=== PATIENT | female | born 1985 | race Caucasian/White ===

== ENCOUNTER 2016-12-14 22:03 | Emergency (ER) | payer SELFPAY ==
[2016-12-14 22:33] VITALS: BP 108/71; PULSE 71; RESP 20; TEMP 97.6; O2SAT 98
[2016-12-14] MEDS ORDERED: Fluorescein 1 mg Ophthalmic Strip ONE (23:14)
[2016-12-14] MEDS ORDERED: Tetracaine 0.5% Ophth (OR ONLY) ONE (23:14)
--- NOTE | 2016-12-15 00:22 | C.PDOC ---
History Of Present Illness 31 year old female presents to the ED with complaints of pain to the right eye beginning a couple of hours prior to arrival. Patient states while she was sleeping it felt as if something entered her eye. She denies any injury to the eye or vision changes. Time Seen by Provider: 12/14/16 23:03 Chief Complaint (Nursing): Eye Problem History Per: Patient History/Exam Limitations: no limitations Onset/Duration Of Symptoms: Hrs Current Symptoms Are (Timing): Still Present Injury To Eye?: No Quality: "Pain" Associated Symptoms: Pain, Itching. denies: Decreased Vision, Discharge From Eye Recent travel outside of the [place]: No Past Medical History Reviewed: Historical Data, Nursing Documentation, Vital Signs Vital Signs: Last Vital Signs Temp 97.6 F 12/14/16 22:29 Pulse 71 12/14/16 22:29 Resp 20 12/15/16 00:29 BP 108/71 12/14/16 22:29 Pulse Ox 98 12/15/16 07:05 Family History: States: No Known Family Hx - Social History Hx Alcohol Use: No Hx Substance Use: No Review Of Systems Constitutional: Negative for: Fever, Chills, Sweats Eyes: Positive for: Redness Cardiovascular: Negative for: Chest Pain, Palpitations Respiratory: Negative for: Cough, Shortness of Breath Gastrointestinal: Negative for: Nausea, Vomiting, Abdominal Pain, Diarrhea Physical Exam - Physical Exam Appears: Non-toxic, No Acute Distress Skin: Warm, Dry Head: Atraumatic Eye(s): bilateral: PERRL, EOMI, Other (Visual acuity 20/20 bilaterally. no foregin body found but two small corneal abrasions perpendicular around 8 o' clock area. Slight injected conjunctiva to right eye.) Oral Mucosa: Moist Neck: Supple Cardiovascular: Rhythm Regular Neurological/Psych: Oriented x3 ED Course And Treatment O2 Sat by Pulse Oximetry: 98 (room air ) Disposition Counseled Patient/Family Regarding: Diagnosis, Need For Followup, Rx Given - Disposition Referrals: Swapnil Espinosa MD [Staff Provider] - Disposition: HOME/ ROUTINE Disposition Time: 00:20 Condition: STABLE Additional Instructions: Apply drops as prescribed Take motrin for pain Return to ER if worse Prescriptions: Tobramycin 0.3% [Tobrex 0.3% Opth Soln] 1 drop OD TID #1 bottle Instructions: Corneal Abrasion (ED) - Clinical Impression Clinical Impression: Corneal abrasion, right - Scribe Statement The provider has reviewed the documentation as recorded by the Scribe Aaliyah Baldwin All medical record entries made by the Timiibcourtney were at my direction and personally dictated by me. I have reviewed the chart and agree that the record accurately reflects my personal performance of the history, physical exam, medical decision making, and the department course for this patient. I have also personally directed, reviewed, and agree with the discharge instructions and disposition.
== END 2016-12-15 00:29 | disposition home or self-care (01) ==
LOC: EDBD → C.ER 22:03
DX: S05.01XA Injury of conjunctiva and corneal abrasion without foreign body, right eye, initial encounter (principal); X58.XXXA Exposure to other specified factors, initial encounter; Y93.89 Activity, other specified; Y92.89 Other specified places as the place of occurrence of the external cause

== ENCOUNTER 2017-02-03 17:19 | Emergency (ER) | payer SELFPAY ==
[2017-02-03] MEDS ORDERED: Sodium Chloride 0.9% 1,000 ML IV ONE (17:50)
[2017-02-03 18:13] LABS: BASO # 0.1 K/uL (0.0-0.2); BASO % 0.8 % (0.0-2.0); EOS # 0.2 K/uL (0.0-0.7); EOS % 2.2 % (0.0-4.0); HEMOGLOBIN 12.4 g/dL (11.0-16.0); LYMPH # 2.7 K/uL (1.0-4.3); LYMPH % 27.9 % (20.0-40.0); MEAN CELL VOLUME 87.6 fL (81.0-99.0); MEAN CORPUSCULAR HEMOGLOBIN 28.8 pg (27.0-31.0); MEAN CORPUSCULAR HGB CONC 32.8 g/dL (33.0-37.0); MEAN PLATELET VOLUME 8.3 fL (7.2-11.7); MONO # 0.7 K/uL (0.0-0.8); MONO % 6.7 % (0.0-10.0); NEUT # 6.1 K/uL (1.8-7.0); NEUT % 62.4 % (50.0-75.0); NRBC % 0.1 % (0.0-2.0); RBC 4.32 Mil/uL (3.80-5.20); RED CELL DISTRIBUTION WIDTH 13.4 % (11.5-14.5); WHITE BLOOD COUNT 9.8 K/uL (4.8-10.8)
[2017-02-03 18:15] LABS: HCG,QUALITATIVE URINE NEGATIVE (NEGATIVE); SQUAMOUS EPITHIAL 2 /hpf (0-5); URINE BACTERIA OCC (<OCC); URINE BILIRUBIN NEGATIVE (NEGATIVE); URINE BLOOD 3+ (NEGATIVE); URINE CLARITY Hazy (Clear); URINE COLOR Yellow (YELLOW); URINE GLUCOSE (UA) NORMAL (Normal); URINE LEUKOCYTE ESTERASE 2+ Leu/uL (Negative); URINE NITRATE NEGATIVE (NEGATIVE); URINE PROTEIN 2+ mg/dL (NEGATIVE); URINE UROBILINOGEN NORMAL mg/dL (0.2-1.0)
[2017-02-03 18:22] LABS: ALBUMIN 3.9 g/dL (3.5-5.0)
[2017-02-03 18:24] LABS: GFR AFRICAN-AMERICAN > 60; GFR NON-AFRICAN AMERICAN > 60
[2017-02-03 18:25] LABS: ALB/GLOB RATIO 1.2 (1.0-2.1); ALT/SGPT 26 U/L (9-52); AST/SGOT 15 U/L (14-36); BLOOD UREA NITROGEN 10 mg/dL (7-17); CALCIUM 9.3 mg/dl (8.6-10.4); LIPASE 74 U/L (23-300)
--- NOTE | 2017-02-03 18:44 | C.PDOC ---
History Of Present Illness <Nydia Babcock - Last Filed: 02/03/17 18:57> <Tima Moody - Last Filed: 02/03/17 20:22> Patient is a 31 y/o female, whose past medical history includes kidney stones, presents to the emergency department for evaluation of left sided back pain radiating to the abdomen since this morning. Pt reports associated nausea, and pelvic pain. Patient admits to urinary frequency, and dysuria. 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 Otherwise, denies any vomiting, fever, chills, hematuria, or any other associated symptoms at this time. (+) vaginal bleeding- notes she has been spotting for a couple of weeks since she started taking control. (Nydia Babcock) History Per: Patient History/Exam Limitations: no limitations Onset/Duration Of Symptoms: Hrs Current Symptoms Are (Timing): Still Present Radiation Of Pain To:: Back Quality Of Discomfort: "Pain" Associated Symptoms: Nausea, Back Pain, Urinary Symptoms. denies: Fever, Chills , Vomiting, Diarrhea, Loss Of Appetite, Chest Pain, Constipation Exacerbating Factors: None Alleviating Factors: None Recent travel outside of the [place]: No Additional History Per: Patient Abnormal Vaginal Bleeding: No <Nydia Babcock - Last Filed: 02/03/17 18:57> <Tima Moody - Last Filed: 02/03/17 20:22> Time Seen by Provider: 02/03/17 17:50 Chief Complaint (Nursing): Abdominal Pain Past Medical History Reviewed: Historical Data, Nursing Documentation, Vital Signs Family History: States: Unknown Family Hx - Social History Hx Alcohol Use: No Hx Substance Use: No - Immunization History Hx Tetanus Toxoid Vaccination: No Hx Influenza Vaccination: No Hx Pneumococcal Vaccination: No <Nydia Babcock - Last Filed: 02/03/17 18:57> Review Of Systems Except As Marked, All Systems Reviewed And Found Negative. Constitutional: Negative for: Fever, Chills Gastrointestinal: Positive for: Nausea, Abdominal Pain. Negative for: Vomiting , Diarrhea, Constipation Genitourinary: Positive for: Dysuria, Frequency, Pelvic Pain. Negative for: Incontinence, Hematuria, Vaginal Discharge, Vaginal Bleeding Musculoskeletal: Positive for: Back Pain Skin: Negative for: Rash Neurological: Negative for: Weakness, Numbness <Nydia Babcock - Last Filed: 02/03/17 18:57> Physical Exam - Physical Exam Appears: Non-toxic, No Acute Distress Skin: Normal Color, Warm, Dry Head: Atraumatic, Normacephalic Eye(s): bilateral: Normal Inspection, EOMI Nose: Normal Oral Mucosa: Moist Neck: Normal ROM, Supple Chest: Symmetrical Cardiovascular: Rhythm Regular, No Murmur Respiratory: Normal Breath Sounds, No Rales, No Rhonchi, No Wheezing Gastrointestinal/Abdominal: Normal Exam, Soft, No Tenderness, No Guarding, No Rebound Back: No CVA Tenderness, No Vertebral Tenderness, No Paraspinal Tenderness Extremity: Normal ROM Neurological/Psych: Oriented x3, Normal Speech, Normal Cognition <Nydia Babcock - Last Filed: 02/03/17 18:57> ED Course And Treatment - Laboratory Results Result Diagrams: 02/03/17 18:05 02/03/17 18:05 O2 Sat by Pulse Oximetry: 98 (on RA) Pulse Ox Interpretation: Normal Progress Note: Blood work, urinalysis ordered and reviewed. Patient was given IV fluids. Abd and pelvis CT ordered. On reassessment, patient is resting comfortably, no acute distress. Abdomen remains soft and non-tender. Patient will be signed out to Dr. Moody, pending re-eval, and CT scan results. <Nydia Babcock - Last Filed: 02/03/17 18:57> - Laboratory Results Result Diagrams: 02/03/17 18:05 02/03/17 18:05 <Tima Moody - Last Filed: 02/03/17 20:22> Disposition - Disposition Disposition Time: 18:58 <Nydia Babcock - Last Filed: 02/03/17 18:57> Counseled Patient/Family Regarding: Studies Performed, Diagnosis - Disposition Disposition Time: 20:21 - POA Present On Arrival: None <Tima Moody - Last Filed: 02/03/17 20:22> - Disposition Referrals: [facility] [Outside] Disposition: HOME/ ROUTINE Condition: STABLE Instructions: Kidney Stones (GEN) - Clinical Impression Clinical Impression: UTI (urinary tract infection), Abdominal pain, Kidney stone on right side - PA / TAPPET ADJUSTER / Resident Statement MD/DO has reviewed & agrees with the documentation as recorded. - Scribe Statement The provider has reviewed the documentation as recorded by the Scribe <Nydia Babcock - Last Filed: 02/03/17 18:57> <Tima Moody - Last Filed: 02/03/17 20:22> - Scribe Statement Jesus Paul All medical record entries made by the Scribe were at my direction and personally dictated by me. I have reviewed the chart and agree that the record accurately reflects my personal performance of the history, physical exam, medical decision making, and the department course for this patient. I have also personally directed, reviewed, and agree with the discharge instructions and disposition. (Nydia Babcock) Physician Patient Turnover Patient Signed Over To: Tima Moody Handoff Comments: Pending Abd & pelvis CT scan, and re-evaluation. <Nydia Babcock - Last Filed: 02/03/17 18:57>
[2017-02-03] MEDS ORDERED: Ciprofloxacin 400mg/200ml D5W 400 MG/200 ML BAG IVPB STA (20:11)
[2017-02-03] MEDS ORDERED: Ciprofloxacin 400mg/200ml D5W 400 MG/200 ML BAG IVPB ONE (20:18)
[2017-02-03 20:52] VITALS: BP 115/75; PULSE 58; RESP 18; TEMP 97.7; O2SAT 100
--- NOTE | 2017-02-04 08:15 | CT ---
PROCEDURE: CT Abdomen and Pelvis without Oral or IV contrast. HISTORY: pain COMPARISON: None available. TECHNIQUE: Contiguous axial images of the abdomen and pelvis. No oral or IV contrast administered. Coronal and Sagittal reformats generated. Radiation dose: Total exam DLP = 835.15 mGy-cm. This CT exam was performed using one or more of the following dose reduction techniques: Automated exposure control, adjustment of the mA and/or kV according to patient size, and/or use of iterative reconstruction technique. FINDINGS: There is limited evaluation of the solid organs without the administration of IV contrast. LOWER THORAX: No visible consolidation, pleural effusion, or pneumothorax. LIVER: Unremarkable unenhanced appearance. GALLBLADDER AND BILE DUCTS: Unremarkable unenhanced appearance. PANCREAS: Unremarkable unenhanced appearance. SPLEEN: Unremarkable unenhanced appearance. ADRENALS: Unremarkable unenhanced appearance. KIDNEYS AND URETERS: Right-sided ureteral stent. Moderate right-sided hydronephrosis and hydroureter extending to the right UVJ. Approximately 6 mm nonobstructing calculus, upper/mid pole right kidney. No hydronephrosis or obstructing calculus on the left. BLADDER: The urinary bladder appears unremarkable. REPRODUCTIVE: Uterus is present. APPENDIX: The appendix appears within normal limits of caliber. No secondary signs of acute appendicitis. BOWEL: The stomach is nondistended. Lack of oral contrast limits evaluation for bowel pathology. The bowel loops appear within normal limits of caliber without evidence of intestinal obstruction. PERITONEUM: No significant free fluid. No definite free air. LYMPH NODES: No bulky lymphadenopathy identified. VASCULATURE: No aortic aneurysm. BONES: No acute osseous abnormality is detected. OTHER FINDINGS: None. IMPRESSION: Right-sided ureteral stent. Moderate right-sided hydronephrosis and hydroureter extending to the right UVJ. Approximately 6 mm nonobstructing calculus, upper/mid pole right kidney. Additional findings as above. Preliminary impression was provided by virtual radi[employer].
== END 2017-02-03 21:00 | disposition home or self-care (01) ==
LOC: C.ER 17:19
DX: N39.0 Urinary tract infection, site not specified (principal); N13.2 Hydronephrosis with renal and ureteral calculous obstruction
CPT/HCPCS: 74176; 80053; 81001; 83690; 84703; 85025; 87086; 96361; 96365; 99285; J0744; J7040

== ENCOUNTER 2017-03-19 13:41 | Emergency (ER) | payer SELFPAY ==
[2017-03-19 14:32] LABS: URINE BILIRUBIN NEGATIVE (NEGATIVE); URINE BLOOD NEGATIVE (NEGATIVE); URINE COLOR Colorless (YELLOW); URINE GLUCOSE (UA) NORMAL (Normal); URINE KETONE NEGATIVE (NEGATIVE); URINE LEUKOCYTE ESTERASE NEG Leu/uL (Negative); URINE PROTEIN NEGATIVE (NEGATIVE); URINE UROBILINOGEN NORMAL mg/dL (0.2-1.0); WBC URINE < 1 /hpf (0-5)
[2017-03-19] MEDS ORDERED: Sodium Chloride 0.9% 1,000 ML IV ONE (14:43)
--- NOTE | 2017-03-19 14:46 | C.PDOC ---
History Of Present Illness 31 y/o female, whose past medical history includes kidney stones, presents to the emergency department for evaluation of left sided back pain radiating to the abdomen since this morning. Pt reports associated nausea, and pelvic pain. Patient admits to urinary frequency, and dysuria. 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 Otherwise, denies fever, chills, throat pain, CP, SOB, dyspnea, diaphoresis, palpitation, vomiting, hematuria, or any other associated symptoms at this time. Ambulate to Ed for evaluation, appears asymptomatic currently, took pain medication CHAIR MECHANIC Time Seen by Provider: 03/19/17 13:58 Chief Complaint (Nursing): Female Genitourinary History Per: Patient Onset/Duration Of Symptoms: Intermittent Episodes Current Symptoms Are (Timing): Still Present Past Medical History Reviewed: Historical Data, Nursing Documentation, Vital Signs Vital Signs: Last Vital Signs Temp 98.9 F 03/19/17 17:04 Pulse 46 L 03/19/17 17:04 Resp 18 03/19/17 17:04 BP 98/66 L 03/19/17 17:04 Pulse Ox 96 03/19/17 17:22 - Medical History PMH: Kidney Stones Surgical History: No Surg Hx Family History: States: Unknown Family Hx - Social History Hx Alcohol Use: No Hx Substance Use: No - Immunization History Hx Tetanus Toxoid Vaccination: No Hx Influenza Vaccination: No Hx Pneumococcal Vaccination: No Review Of Systems Except As Marked, All Systems Reviewed And Found Negative. Constitutional: Negative for: Fever, Chills ENT: Negative for: Ear Discharge, Nose Discharge, Throat Pain Cardiovascular: Negative for: Chest Pain, Palpitations Respiratory: Negative for: Cough, Shortness of Breath, Wheezing Gastrointestinal: Positive for: Abdominal Pain. Negative for: Nausea, Vomiting , Diarrhea, Constipation, Melena, Hematochezia, Hematemesis Genitourinary: Positive for: Dysuria, Pelvic Pain. Negative for: Hematuria, Vaginal Discharge, Vaginal Bleeding Musculoskeletal: Positive for: Back Pain. Negative for: Neck Pain Skin: Negative for: Rash Neurological: Negative for: Weakness, Numbness, Seizures, Altered Mental Status , Headache, Dizziness Physical Exam - Physical Exam Appears: Well, Non-toxic, No Acute Distress Skin: Normal Color, Warm, Dry Eye(s): bilateral: PERRL Nose: No Discharge Oral Mucosa: Moist, No Drooling Throat: No Erythema, No Exudate, No Drooling Neck: Normal ROM, Supple Cardiovascular: Rhythm Regular Respiratory: No Decreased Breath Sounds, No Accessory Muscle Use, No Rales, No Rhonchi, No Stridor, No Wheezing Gastrointestinal/Abdominal: Soft, Tenderness (mild RLQ tenderness), No Distention, No Guarding, No Rebound Back: No CVA Tenderness Extremity: No Tenderness, No Pedal Edema, No Deformity Neurological/Psych: Oriented x3, Normal Speech, Normal Motor, Normal Sensation, Normal Reflexes ED Course And Treatment - Laboratory Results Result Diagrams: 03/19/17 15:02 03/19/17 15:02 Lab Interpretation: Normal O2 Sat by Pulse Oximetry: 96 Pulse Ox Interpretation: Normal - CT Scan/US CT abd/pelvis Other Rad Studies (CT/US): Radiology Report Reviewed CT/US Interpretation: Accession No. : [id number]. Patient Name / ID : CRISTIAN SPEAR / [id number]. Exam Date : 03/19/2017 16:35:48 ( Approved ). Study Comment : Sex / Age : F / 39Y. Creator : Grisel Agudelo MD. Dictator : Strategic Planning Manager : Parts Cataloger : Grisel Agudelo MD. Approver2 : Report Date : 03/19/2017 17:06:21. My Comment : . PROCEDURE: CT Abdomen and Pelvis with contrast. HISTORY: RLQ pain. COMPARISON: CT abdomen and pelvis without contrast performed 02/03/17. TECHNIQUE: Contrast dose: 100 cc Visipaque 320. Radiation dose: Total exam DLP = 832.65 mGy-cm. This CT exam was performed using one or more of the following dose reduction techniques: Automated exposure control, adjustment of the mA and/or kV according to patient size, and/or use of iterative reconstruction technique. FINDINGS: LOWER THORAX : No visible consolidation, pleural effusion, or pneumothorax. 6 x 3 mm subpleural left lower lobe pleural based nodule. LIVER: Unremarkable. GALLBLADDER AND BILE DUCTS: Unremarkable. PANCREAS: Unremarkable. SPLEEN: Unremarkable. ADRENALS: Unremarkable. KIDNEYS AND URETERS: The kidneys enhance symmetrically. No hydronephrosis or obstructing calculus identified. 4 mm right lower pole renal calculus. Right ureteral stent. VASCULATURE: No aortic aneurysm. BOWEL: Stomach is nondistended. Lack of oral contrast limits evaluation for bowel pathology. Bowel loops appear within normal limits of caliber without evidence of obstruction. APPENDIX: The appendix appears within normal limits of caliber. No secondary signs of acute appendicitis. PERITONEUM: No significant free fluid. No definite free air. LYMPH NODES: No bulky adenopathy identified. BLADDER: Unremarkable. REPRODUCTIVE: Uterus is present. BONES: No acute osseous abnormality is detected. OTHER FINDINGS: None. IMPRESSION: 6 x 3 mm subpleural left lower lobe pleural based nodule. Guidelines by the Fleischner society (radiology 2005; 237:395-400) suggests that in patients with low risk for lung cancer, nodules from 5 mm to 6 mm in diameter should have follow-up in approximately 12 months. In patients with high-risk, such as those were smokers, follow-up is recommended in 6 months. Patients with a known malignancy or risk for metastases should receive 3 month follow-up. Right ureteral stent. 4 mm right lower pole renal calculus. No hydronephrosis identified. Progress Note: On re-evaluation, pt is afebrile, hemodynamicaly stable. Non- toxic. Tolerate Po well in ED. Neck: Supple, (-) JVD. ENT: no acute findings. Lungs: CTA B/L, B/S equal B/L. ABd: benign, (-) guarding, (-) rebound, (-) localized tenderness. Back: (-) CVA tenderness. Blood work review and appears normal. CT abd/pelvis- no new acute abnoramlities. Pt advised, ref. to F/u with PMD, Urology in 2-3 days for re-eavl. return to ED if any worsening or new changes. Disposition Counseled Patient/Family Regarding: Studies Performed, Diagnosis, Need For Followup, Rx Given - Disposition Referrals: [facility] [Outside] Ankush Gunderson MD [Staff Provider] - Disposition: HOME/ ROUTINE Disposition Time: 17:25 Condition: STABLE Additional Instructions: Take pain medication as need for pain Encourage fluids Light duty, avoid strenuous physical activity for 1 week Follow up with PMD, Urology ( kidney specialist) In 2-3 days for re-evaluation. Return to ED if any worsening or new changes. 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 - Scribe Statement The provider has reviewed the documentation as recorded by the Scribe SM All medical record entries made by the Scribe were at my direction and personally dictated by me. I have reviewed the chart and agree that the record accurately reflects my personal performance of the history, physical exam, medical decision making, and the department course for this patient. I have also personally directed, reviewed, and agree with the discharge instructions and disposition.
[2017-03-19] MEDS ORDERED: Sodium Chloride 0.9% 1,000 ML ONE (14:57)
[2017-03-19 15:07] LABS: BASO # 0.1 K/uL (0.0-0.2); BASO % 1.1 % (0.0-2.0); EOS # 0.2 K/uL (0.0-0.7); EOS % 2.6 % (0.0-4.0); HEMATOCRIT 39.4 % (34.0-47.0); LYMPH # 2.4 K/uL (1.0-4.3); LYMPH % 27.6 % (20.0-40.0); MEAN CORPUSCULAR HEMOGLOBIN 28.5 pg (27.0-31.0); MEAN CORPUSCULAR HGB CONC 33.1 g/dL (33.0-37.0); MONO # 0.5 K/uL (0.0-0.8); MONO % 6.3 % (0.0-10.0); WHITE BLOOD COUNT 8.8 K/uL (4.8-10.8)
[2017-03-19 15:13] LABS: CHLORIDE 104 mmol/L (98-107); SODIUM 140 mmol/L (132-148)
[2017-03-19 15:14] LABS: POTASSIUM 4.5 mmol/L (3.6-5.2)
[2017-03-19 15:16] LABS: ALB/GLOB RATIO 1.3 (1.0-2.1); ALKALINE PHOSPHATASE 71 U/L (38-126); AST/SGOT 15 U/L (14-36); BILIRUBIN,TOTAL 0.3 mg/dL (0.2-1.3); BLOOD UREA NITROGEN 5 mg/dL (7-17); CARBON DIOXIDE 24 mmol/L (22-30); GFR AFRICAN-AMERICAN > 60; GLUCOSE,RANDOM 83 mg/dL (65-105); TOTAL PROTEIN 7.3 g/dL (6.3-8.3)
[2017-03-19 15:17] LABS: ALT/SGPT 27 U/L (9-52); CALCIUM 9.4 mg/dl (8.6-10.4)
[2017-03-19] MEDS ORDERED: Iodixanol 320 MG/ML 100 ML BOTTLE IV ONE (16:07)
[2017-03-19 17:04] VITALS: RESP 18; TEMP 98.9
--- NOTE | 2017-03-19 17:07 | CT ---
PROCEDURE: CT Abdomen and Pelvis with contrast HISTORY: RLQ pain COMPARISON: CT abdomen and pelvis without contrast performed 02/03/17 TECHNIQUE: Contrast dose: 100 cc Visipaque 320 Radiation dose: Total exam DLP = 832.65 mGy-cm. This CT exam was performed using one or more of the following dose reduction techniques: Automated exposure control, adjustment of the mA and/or kV according to patient size, and/or use of iterative reconstruction technique. FINDINGS: LOWER THORAX: No visible consolidation, pleural effusion, or pneumothorax. 6 x 3 mm subpleural left lower lobe pleural based nodule. LIVER: Unremarkable. GALLBLADDER AND BILE DUCTS: Unremarkable. PANCREAS: Unremarkable. SPLEEN: Unremarkable. ADRENALS: Unremarkable. KIDNEYS AND URETERS: The kidneys enhance symmetrically. No hydronephrosis or obstructing calculus identified. 4 mm right lower pole renal calculus. Right ureteral stent. VASCULATURE: No aortic aneurysm. BOWEL: Stomach is nondistended. Lack of oral contrast limits evaluation for bowel pathology. Bowel loops appear within normal limits of caliber without evidence of obstruction. APPENDIX: The appendix appears within normal limits of caliber. No secondary signs of acute appendicitis. PERITONEUM: No significant free fluid. No definite free air. LYMPH NODES: No bulky adenopathy identified. BLADDER: Unremarkable. REPRODUCTIVE: Uterus is present. BONES: No acute osseous abnormality is detected. OTHER FINDINGS: None. IMPRESSION: 6 x 3 mm subpleural left lower lobe pleural based nodule. Guidelines by the Fleischner society (radiology 2005; 237:395-400) suggests that in patients with low risk for lung cancer, nodules from 5 mm to 6 mm in diameter should have follow-up in approximately 12 months. In patients with high-risk, such as those were smokers, follow-up is recommended in 6 months. Patients with a known malignancy or risk for metastases should receive 3 month follow-up. Right ureteral stent. 4 mm right lower pole renal calculus. No hydronephrosis identified.
[2017-03-19 17:38] VITALS: BP 112/64; PULSE 66; O2SAT 100
== END 2017-03-19 17:38 | disposition home or self-care (01) ==
LOC: C.ER 13:41
DX: R30.0 Dysuria (principal); M54.9 Dorsalgia, unspecified
CPT/HCPCS: 74177; 80053; 81001; 84703; 85025; 87086; 96361; 96374; 99284; J1885; J7040; Q9967

== ENCOUNTER → 2017-09-01 10:56 | Emergency (ER) | payer SELFPAY | END | disposition left against medical advice (07) | LOC: C.ER 10:56 | DX: Z02.89 Encounter for other administrative examinations (principal); R11.10 Vomiting, unspecified ==

== ENCOUNTER 2017-09-03 11:50 | Emergency (ER) | payer OTHER ==
[2017-09-03 11:56] VITALS: O2SAT 99
[2017-09-03 12:38] LABS: URINE BACTERIA FEW (<OCC); URINE BILIRUBIN NEGATIVE (NEGATIVE); URINE BLOOD 3+ (NEGATIVE); URINE CLARITY Turbid (Clear); URINE GLUCOSE (UA) 1+ mg/dL (Normal); URINE LEUKOCYTE ESTERASE TRACE Leu/uL (Negative); URINE NITRATE NEGATIVE (NEGATIVE); URINE PROTEIN 2+ mg/dL (NEGATIVE); URINE UROBILINOGEN NORMAL mg/dL (0.2-1.0)
[2017-09-03 12:39] LABS: URINE COLOR RED (YELLOW)
[2017-09-03 12:41] LABS: HCG,QUALITATIVE URINE NEGATIVE (NEGATIVE)
[2017-09-03] MEDS ORDERED: Sodium Chloride 0.9% 1,000 ML IV ONE (12:51)
[2017-09-03 13:21] LABS: BASO # 0.1 K/uL (0.0-0.2); BASO % 0.7 % (0.0-2.0); EOS # 0.2 K/uL (0.0-0.7); EOS % 2.4 % (0.0-4.0); HEMOGLOBIN 12.4 g/dL (11.0-16.0); LYMPH # 1.9 K/uL (1.0-4.3); LYMPH % 24.9 % (20.0-40.0); MEAN CELL VOLUME 87.3 fL (81.0-99.0); MEAN CORPUSCULAR HEMOGLOBIN 29.6 pg (27.0-31.0); MEAN CORPUSCULAR HGB CONC 33.9 g/dL (33.0-37.0); MONO # 0.5 K/uL (0.0-0.8); MONO % 6.6 % (0.0-10.0); NEUT # 5.1 K/uL (1.8-7.0); NEUT % 65.4 % (50.0-75.0); RBC 4.18 Mil/uL (3.80-5.20); RED CELL DISTRIBUTION WIDTH 13.8 % (11.5-14.5); WHITE BLOOD COUNT 7.7 K/uL (4.8-10.8)
[2017-09-03 13:36] LABS: ALB/GLOB RATIO 1.3 (1.0-2.1); ALBUMIN 4.1 g/dL (3.5-5.0); ALT/SGPT 15 U/L (9-52); AST/SGOT 17 U/L (14-36); BLOOD UREA NITROGEN 13 mg/dL (7-17); CALCIUM 9.4 mg/dl (8.6-10.4); GFR AFRICAN-AMERICAN > 60; GFR NON-AFRICAN AMERICAN > 60
--- NOTE | 2017-09-03 14:17 | C.PDOC ---
History Of Present Illness Adele Paul is a 40 year old female, with a past medical history of kidney stones and ureteral stent placed in May but supposed to be taken out in June, who presents to the emergency department complaining of right sided back pain that radiates down towards the groin in addition to hematuria, dysuria , urinary frequency and urgency onset for x3 days. Patient states the pain comes and goes. She took cipro at home but no analgesics. She denies any fever, chills, nausea or vomit. No further medical complaints. PMD: None provided. Time Seen by Provider: 09/03/17 12:23 Chief Complaint (Nursing): Female Genitourinary History Per: Patient History/Exam Limitations: no limitations Onset/Duration Of Symptoms: Days (x3) Current Symptoms Are (Timing): Still Present Quality Of Discomfort: "Pain" Associated Symptoms: Other (dysuria, hematuria, urinary frequency and urgency) Past Medical History Reviewed: Historical Data, Nursing Documentation, Vital Signs Vital Signs: Last Vital Signs Temp 98 F 09/03/17 14:31 Pulse 68 09/03/17 14:31 Resp 16 09/03/17 14:31 BP 114/71 09/03/17 14:31 Pulse Ox 99 09/05/17 09:32 - Medical History PMH: Kidney Stones, Chronic Kidney Disease Surgical History: No Surg Hx Family History: States: Unknown Family Hx - Social History Hx Tobacco Use: No Hx Alcohol Use: No Hx Substance Use: No - Immunization History Hx Tetanus Toxoid Vaccination: No Hx Influenza Vaccination: No Hx Pneumococcal Vaccination: No Review Of Systems Constitutional: Negative for: Fever, Chills Gastrointestinal: Negative for: Nausea, Vomiting Genitourinary: Positive for: Dysuria, Frequency, Hematuria Musculoskeletal: Positive for: Back Pain (right sided, radiates down towards the groin) Physical Exam - Physical Exam Appears: Well, No Acute Distress Skin: Normal Color, Warm, Dry Head: Atraumatic, Normacephalic Eye(s): bilateral: Normal Inspection, PERRL, EOMI Neck: Normal ROM Chest: Symmetrical Cardiovascular: Rhythm Regular, No Murmur Respiratory: Normal Breath Sounds (clear b/l), No Wheezing Gastrointestinal/Abdominal: Bowel Sounds (good), Tenderness (RLQ ), No Guarding , No Rebound Back: Normal Inspection, CVA Tenderness (right) Extremity: Normal ROM, No Deformity, No Swelling Neurological/Psych: Oriented x3 ED Course And Treatment - Laboratory Results Result Diagrams: 09/03/17 13:16 09/03/17 13:16 O2 Sat by Pulse Oximetry: 99 (RA) Pulse Ox Interpretation: Normal Medical Decision Making Medical Decision Making: Initial Impression: Kidney stones Initial Plan: --Abd & Pelvis w/o PO or IV contrast [CT] --CMP --CBC w/ differential --Sodium Chloride 1,000 ml IV 1,000 mls/hr --Toradol 30 mg IVP --Urine culture --HCG, Qualitative urine --Urinalysis --Reevaluation 13:47 Abdomen & Pelvis CT FINDINGS: There is limited evaluation of the solid organs without the administration of IV contrast. LOWER THORAX: No visible consolidation, pleural effusion, or pneumothorax. LIVER: Unremarkable. GALLBLADDER AND BILE DUCTS: Unremarkable. PANCREAS: Unremarkable. SPLEEN: Unremarkable. ADRENALS: Unremarkable. KIDNEYS AND URETERS: Right ureteral stent with evidence of hydronephrosis and extrarenal pelvis. 4 mm right renal calculus. No left-sided hydronephrosis or obstructing renal calculus. BLADDER: The urinary bladder appears unremarkable. REPRODUCTIVE: Uterus is present. APPENDIX: The appendix appears within normal limits of caliber. No secondary signs of acute appendicitis. BOWEL: The stomach is nondistended. Lack of oral contrast limits evaluation for bowel pathology. The bowel loops appear within normal limits of caliber without evidence of intestinal obstruction. PERITONEUM: No significant free fluid. No definite free air. LYMPH NODES: No bulky lymphadenopathy identified. VASCULATURE: No aortic aneurysm. BONES: No acute osseous abnormality is detected. OTHER FINDINGS: Tiny fat containing umbilical hernia. IMPRESSION: Right ureteral stent with evidence of hydronephrosis and extrarenal pelvis. 4 mm right renal calculus. 14:[address] Leanna Gunderson, pt to be discharged and to go directly to his office. patient agrees with plan. Disposition Discussed With : Ankush Gunderson Doctor Will See Patient In The: Office Counseled Patient/Family Regarding: Studies Performed, Diagnosis, Need For Followup - Disposition Referrals: Ankush Gunderson MD [Staff Provider] - Disposition: HOME/ ROUTINE Disposition Time: 14:49 Condition: STABLE Additional Instructions: Please go to see Dr Charly Gunderson in his office directly after you leave the Emergency Department. His office is at [address] [place] [address]. He is expecting you there. Instructions: Flank Pain (ED) Forms: [facility] (Nepali), General Discharge Instructions - Clinical Impression Clinical Impression: Right flank pain, Hematuria - Scribe Statement Mike Betancur All medical record entries made by the Scribe were at my direction and personally dictated by me. I have reviewed the chart and agree that the record accurately reflects my personal performance of the history, physical exam, medical decision making, and the department course for this patient. I have also personally directed, reviewed, and agree with the discharge instructions and disposition.
--- NOTE | 2017-09-03 14:18 | CT ---
PROCEDURE: CT Abdomen and Pelvis without Oral or IV contrast. HISTORY: right flank pain, hematuria, hx stones COMPARISON: CT abdomen and pelvis with contrast performed 03/19/17 TECHNIQUE: Contiguous axial images of the abdomen and pelvis. No oral or IV contrast administered. Coronal and Sagittal reformats generated and reviewed. Radiation dose: Total exam DLP = 1042.89 mGy-cm. This CT exam was performed using one or more of the following dose reduction techniques: Automated exposure control, adjustment of the mA and/or kV according to patient size, and/or use of iterative reconstruction technique. FINDINGS: There is limited evaluation of the solid organs without the administration of IV contrast. LOWER THORAX: No visible consolidation, pleural effusion, or pneumothorax. LIVER: Unremarkable. GALLBLADDER AND BILE DUCTS: Unremarkable. PANCREAS: Unremarkable. SPLEEN: Unremarkable. ADRENALS: Unremarkable. KIDNEYS AND URETERS: Right ureteral stent with evidence of hydronephrosis and extrarenal pelvis. 4 mm right renal calculus. No left-sided hydronephrosis or obstructing renal calculus. BLADDER: The urinary bladder appears unremarkable. REPRODUCTIVE: Uterus is present. APPENDIX: The appendix appears within normal limits of caliber. No secondary signs of acute appendicitis. BOWEL: The stomach is nondistended. Lack of oral contrast limits evaluation for bowel pathology. The bowel loops appear within normal limits of caliber without evidence of intestinal obstruction. PERITONEUM: No significant free fluid. No definite free air. LYMPH NODES: No bulky lymphadenopathy identified. VASCULATURE: No aortic aneurysm. BONES: No acute osseous abnormality is detected. OTHER FINDINGS: Tiny fat containing umbilical hernia. IMPRESSION: Right ureteral stent with evidence of hydronephrosis and extrarenal pelvis. 4 mm right renal calculus.
[2017-09-03 14:31] VITALS: BP 114/71; PULSE 68; RESP 16; TEMP 98
== END 2017-09-03 14:56 | disposition home or self-care (01) ==
LOC: C.ER 11:50
DX: R31.9 Hematuria, unspecified (principal); R10.9 Unspecified abdominal pain
CPT/HCPCS: 74176; 80053; 81001; 84703; 85025; 87086; 96361; 96374; 99283; J1885; J7040

== ENCOUNTER 2018-01-19 09:21 | Observation (INO) | payer OTHER ==
[2018-01-19] MEDS ORDERED: Sodium Chloride 0.9% 1,000 ML IV ONE (09:55)
[2018-01-19 10:15] LABS: BASO # 0.1 K/uL (0.0-0.2); BASO % 0.8 % (0.0-2.0); EOS # 0.2 K/uL (0.0-0.7); EOS % 2.2 % (0.0-4.0); HEMOGLOBIN 12.7 g/dL (11.0-16.0); LYMPH # 2.1 K/uL (1.0-4.3); LYMPH % 30.2 % (20.0-40.0); MEAN CELL VOLUME 88.1 fL (81.0-99.0); MEAN CORPUSCULAR HEMOGLOBIN 30.5 pg (27.0-31.0); MEAN CORPUSCULAR HGB CONC 34.6 g/dL (33.0-37.0); MONO # 0.5 K/uL (0.0-0.8); MONO % 6.8 % (0.0-10.0); NEUT # 4.1 K/uL (1.8-7.0); RBC 4.16 Mil/uL (3.80-5.20); RED CELL DISTRIBUTION WIDTH 13.6 % (11.5-14.5); WHITE BLOOD COUNT 6.9 K/uL (4.8-10.8)
[2018-01-19 10:26] LABS: ALB/GLOB RATIO 1.4 (1.0-2.1); ALBUMIN 4.4 g/dL (3.5-5.0); ALT/SGPT 17 U/L (9-52); AST/SGOT 22 U/L (14-36); BLOOD UREA NITROGEN 8 mg/dL (7-17); CALCIUM 9.1 mg/dl (8.6-10.4); GFR AFRICAN-AMERICAN > 60; GFR NON-AFRICAN AMERICAN > 60; LIPASE 98 U/L (23-300)
[2018-01-19] MEDS ORDERED: Sodium Chloride 0.9% 1,000 ML ONE (10:36)
[2018-01-19 10:51] LABS: SQUAMOUS EPITHIAL 5 /hpf (0-5); URINE BACTERIA RARE (<OCC); URINE BILIRUBIN NEGATIVE (NEGATIVE); URINE BLOOD 3+ (NEGATIVE); URINE CLARITY Hazy (Clear); URINE COLOR Yellow (YELLOW); URINE GLUCOSE (UA) NORMAL (Normal); URINE LEUKOCYTE ESTERASE 3+ Leu/uL (Negative); URINE PROTEIN 1+ mg/dL (NEGATIVE); URINE UROBILINOGEN NORMAL mg/dL (0.2-1.0)
[2018-01-19 10:55] LABS: HCG,QUALITATIVE URINE NEGATIVE (NEGATIVE)
--- NOTE | 2018-01-19 12:02 | CT ---
PROCEDURE: CT Abdomen and Pelvis without intravenous contrast HISTORY: abd pain COMPARISON: Abdomen pelvis CT without contrast 09/03/2017. TECHNIQUE: Helical CT of the abdomen and pelvis was performed without oral or intravenous contrast as per referring physician request. Contrast dose: None Radiation dose: Total exam DLP = 674.91 mGy-cm. This CT exam was performed using one or more of the following dose reduction techniques: Automated exposure control, adjustment of the mA and/or kV according to patient size, and/or use of iterative reconstruction technique. FINDINGS: LOWER THORAX: Unremarkable. LIVER: Unremarkable. No gross lesion or ductal dilatation. GALLBLADDER AND BILE DUCTS: Unremarkable. PANCREAS: Unremarkable. No gross lesion or ductal dilatation. SPLEEN: Unremarkable. ADRENALS: Unremarkable. No mass. KIDNEYS AND URETERS: There is residual borderline right hydronephrosis with right double-J ureteral stent in position once again without significant interval change in positioning. No visible radiodense calculus is appreciated abutting the stent. No radiodense urolithiasis identified bilaterally as well as within the urinary bladder. No left-sided obstructive uropathy trace reactive changes are seen surrounding the right renal pelvis which are nonspecific and may be an infectious or inflammatory etiology. Clinically correlate further. VASCULATURE: Unremarkable. No aortic aneurysm. BOWEL: Stomach is decompressed. No obstruction. Left hemicolon is collapsed. No pericolic reaction or diverticular changes associated with the colon. [id number] fecal loading seen the right hemicolon. Lack of oral contrast limits evaluation the gastrointestinal tract. APPENDIX: Unremarkable. Normal appendix. PERITONEUM: Unremarkable. No free fluid. No free air. LYMPH NODES: Unremarkable. No enlarged lymph nodes. BLADDER: Unremarkable. REPRODUCTIVE: Unremarkable. BONES: No acute fracture. OTHER FINDINGS: Stable tiny fat containing umbilical hernia evident. IMPRESSION: 1. No obstructive uropathy appreciated the left kidney or radiodense urolithiasis bilaterally. Right double-J ureteral stent not significantly changed in position with decompression of the right pelvocaliceal system though residual dilatation is noted on a very mild basis. Peripelvic reactive changes are reiterated which may reflect trace inflammatory infectious process. Further clinical correlation is advised. Is not to the patient is asymptomatic on the right flank. No pertinent findings are appreciated in this examination to identify left flank acute or subacute pathology. 2. No small or large bowel obstruction pattern appreciated.
--- NOTE | 2018-01-19 12:40 | C.PDOC ---
History Of Present Illness 40 y/o female presents to the ER for evaluation upon referral of Dr. Jian Gunderson secondary to ureteral stent. Patient is complaining of abdominal pain, nausea, and dysuria. Patient states that she is taking Cipro. Patient denies having abdominal pain, vomiting, and diarrhea. Time Seen by Provider: 01/19/18 09:33 Chief Complaint (Nursing): Abdominal Pain History Per: Patient History/Exam Limitations: no limitations Onset/Duration Of Symptoms: Days Current Symptoms Are (Timing): Still Present Severity: Moderate Past Medical History Reviewed: Historical Data, Nursing Documentation, Vital Signs Vital Signs: Last Vital Signs Temp 97.7 F 01/19/18 13:19 Pulse 52 L 01/19/18 13:19 Resp 18 01/19/18 13:19 BP 115/77 01/19/18 13:19 Pulse Ox 98 01/19/18 15:21 - Medical History PMH: Kidney Stones, Chronic Kidney Disease Other Surgeries: Hx of surgeries Family History: States: No Known Family Hx - Social History Hx Tobacco Use: No Hx Alcohol Use: No Hx Substance Use: No - Immunization History Hx Tetanus Toxoid Vaccination: No Hx Influenza Vaccination: No Hx Pneumococcal Vaccination: No Review Of Systems Except As Marked, All Systems Reviewed And Found Negative. Constitutional: Negative for: Fever, Chills Gastrointestinal: Positive for: Nausea, Abdominal Pain. Negative for: Vomiting , Diarrhea Genitourinary: Positive for: Dysuria Physical Exam - Physical Exam Appears: Non-toxic, No Acute Distress Skin: Normal Color, Warm, Dry Head: Atraumatic, Normacephalic Eye(s): bilateral: Normal Inspection Nose: Normal Oral Mucosa: Moist Neck: Supple Chest: Symmetrical Cardiovascular: Rhythm Regular Respiratory: Normal Breath Sounds, No Rales, No Rhonchi, No Wheezing Gastrointestinal/Abdominal: Bowel Sounds ((+) bowel sounds), Soft, Tenderness ( left-sided tenderness), No Guarding, No Rebound Neurological/Psych: Oriented x3, Normal Speech ED Course And Treatment - Laboratory Results Result Diagrams: 01/19/18 10:08 01/19/18 10:08 O2 Sat by Pulse Oximetry: 98 (RA) Pulse Ox Interpretation: Normal - CT Scan/US CT - Abd & Pelv. Other Rad Studies (CT/US): Read By Radiologist, Radiology Report Reviewed CT/US Interpretation: PROCEDURE: CT Abdomen and Pelvis without intravenous contrast. HISTORY: abd pain. COMPARISON: Abdomen pelvis CT without contrast 09/03/2017. TECHNIQUE: Helical CT of the abdomen and pelvis was performed without oral or intravenous contrast as per referring physician request. Contrast dose: None. Radiation dose: Total exam DLP = 674.91 mGy-cm. This CT exam was performed using one or more of the following dose reduction techniques : Automated exposure control, adjustment of the mA and/or kV according to patient size, and/or use of iterative reconstruction technique. FINDINGS: LOWER THORAX: Unremarkable. LIVER: Unremarkable. No gross lesion or ductal dilatation. GALLBLADDER AND BILE DUCTS: Unremarkable. PANCREAS: Unremarkable. No gross lesion or ductal dilatation. SPLEEN: Unremarkable. ADRENALS: Unremarkable. No mass. KIDNEYS AND URETERS: There is residual borderline right hydronephrosis with right double-J ureteral stent in position once again without significant interval change in positioning. No visible radiodense calculus is appreciated abutting the stent. No radiodense urolithiasis identified bilaterally as well as within the urinary bladder. No left-sided obstructive uropathy trace reactive changes are seen surrounding the right renal pelvis which are nonspecific and may be an infectious or inflammatory etiology. Clinically correlate further. VASCULATURE: Unremarkable. No aortic aneurysm. BOWEL: Stomach is decompressed. No obstruction. Left hemicolon is collapsed. No pericolic reaction or diverticular changes associated with the colon. [id number]-[id number] fecal loading seen the right hemicolon. Lack of oral contrast limits evaluation the gastrointestinal tract. APPENDIX: Unremarkable. Normal appendix. PERITONEUM: Unremarkable. No free fluid. No free air. LYMPH NODES: Unremarkable. No enlarged lymph nodes. BLADDER: Unremarkable. REPRODUCTIVE: Unremarkable. BONES: No acute fracture. OTHER FINDINGS: Stable tiny fat containing umbilical hernia evident. IMPRESSION: 1. No obstructive uropathy appreciated the left kidney or radiodense urolithiasis bilaterally. Right double-J ureteral stent not significantly changed in position with decompression of the right pelvocaliceal system though residual dilatation is noted on a very mild basis. Peripelvic reactive changes are reiterated which may reflect trace inflammatory infectious process. Further clinical correlation is advised. Is not to the patient is asymptomatic on the right flank. No pertinent findings are appreciated in this examination to identify left flank acute or subacute pathology. 2. No small or large bowel obstruction pattern appreciated. Medical Decision Making Medical Decision Making: Assessment: Ureteral Stent Retention Plan: --Labs --Cipro IV --Pepcid IV --Toradol IV --Zofran IV Updates: Case discussed with Dr.E Gunderson. Patient has been admitted to [facility] under the service of Dr. Jian Gunderson for ureteral stent retention. Disposition Discussed With .: Ankush Gunderson Doctor Will See Patient In The: Hospital Counseled Patient/Family Regarding: Studies Performed, Diagnosis - Disposition Disposition: HOSPITALIZED Disposition Time: 12:46 Condition: FAIR - Clinical Impression Clinical Impression: Ureteral stent retained - Scribe Statement The provider has reviewed the documentation as recorded by the Scribe Jarrett Smith Provider Attestation: All medical record entries made by the Scribe were at my direction and personally dictated by me. I have reviewed the chart and agree that the record accurately reflects my personal performance of the history, physical exam, medical decision making, and the department course for this patient. I have also personally directed, reviewed, and agree with the discharge instructions and disposition.
[2018-01-19] MEDS ORDERED: Ciprofloxacin 400mg/200ml D5W 400 MG/200 ML BAG IVPB STA (12:45)
[2018-01-19] MEDS ORDERED: Ciprofloxacin 400mg/200ml D5W 400 MG/200 ML BAG IVPB ONE (12:55)
[2018-01-19 17:13] VITALS: BP 128/81; PULSE 88; RESP 20; TEMP 97.9; O2SAT 97
--- NOTE | 2018-01-19 19:11 | CT ---
PROCEDURE: CT Abdomen and Pelvis without intravenous contrast HISTORY: stones COMPARISON: CT scan of the abdomen and pelvis performed approximately 6 hours prior. TECHNIQUE: Contiguous images were obtained from the domes of the diaphragms to the upper thighs without the administration of intravenous contrast. Oral contrast was not administered. Radiation dose: Total exam DLP = 818.6 mGy-cm. This CT exam was performed using one or more of the following dose reduction techniques: Automated exposure control, adjustment of the mA and/or kV according to patient size, and/or use of iterative reconstruction technique. FINDINGS: LOWER THORAX: Unremarkable. LIVER: Unremarkable. No gross lesion or ductal dilatation. GALLBLADDER AND BILE DUCTS: Unremarkable. PANCREAS: Unremarkable. No gross lesion or ductal dilatation. SPLEEN: Unremarkable. ADRENALS: Unremarkable. No mass. KIDNEYS AND URETERS: Borderline right hydronephrosis with focal pelvocaliectasis. Stable 4 mm nonobstructive calculus in the right dependent pelvocaliceal junction. Stable indwelling right double-J ureteral stent. No left-sided uropathy. No solid mass. VASCULATURE: Unremarkable. No aortic aneurysm. BOWEL: Unremarkable. No obstruction. No gross mural thickening. APPENDIX: No findings to suggest acute appendicitis. PERITONEUM: Stable small fat containing umbilical hernia. No free fluid. No free air. LYMPH NODES: Unremarkable. No enlarged lymph nodes. BLADDER: Unremarkable. REPRODUCTIVE: Unremarkable. BONES: No acute fracture. OTHER FINDINGS: None. IMPRESSION: No significant interval change.
[2018-01-21] MEDS ORDERED: Pneumococcal 23-Valent Vaccine IM ONE (10:00)
== END 2018-01-19 21:45 | disposition home or self-care (01) ==
LOC: C.ER 09:21 → C.9E 12:45 → C.3T 13:14
PROVIDERS: ADMIT Urology; ATTEND Urology
DX: T83.192A Other mechanical complication of indwelling ureteral stent, initial encounter (principal)
CPT/HCPCS: 74176; 80053; 81001; 83690; 84703; 85025; 87086; 96360; 96374; G0378; J0744; J1885; J2405; J7030

== ENCOUNTER 2018-01-20 09:06 | Day surgery (SDC) | payer OTHER ==
--- NOTE | 2018-01-20 10:33 | C.PDOC ---
History Of Present Illness Patient presents to ED for right flank pain due to ureteral stent + stone. She states stent has been in since last year, placed by different urologist. Blood work and CT scan already done yesterday. Time Seen by Provider: 01/20/18 09:48 Chief Complaint (Nursing): Medical Clearance History Per: Patient History/Exam Limitations: no limitations Current Symptoms Are (Timing): Still Present Severity: Mild Past Medical History Reviewed: Historical Data, Nursing Documentation, Vital Signs Vital Signs: Last Vital Signs Temp 97.8 F 01/20/18 18:05 Pulse 96 H 01/20/18 18:05 Resp 20 01/20/18 18:05 BP 114/76 01/20/18 18:05 Pulse Ox 100 01/20/18 18:05 - Medical History PMH: Kidney Stones, Chronic Kidney Disease Other Surgeries: right sided ureteral stent Family History: States: No Known Family Hx - Social History Hx Tobacco Use: No Hx Alcohol Use: No Hx Substance Use: No - Immunization History Hx Tetanus Toxoid Vaccination: No Hx Influenza Vaccination: No Hx Pneumococcal Vaccination: No Review Of Systems Constitutional: Negative for: Fever, Chills Cardiovascular: Negative for: Chest Pain, Palpitations Respiratory: Negative for: Cough, Shortness of Breath Gastrointestinal: Negative for: Nausea, Vomiting, Abdominal Pain Musculoskeletal: Positive for: Other (right sided flank pain) Physical Exam - Physical Exam Appears: Well, Non-toxic, No Acute Distress Oral Mucosa: Moist Cardiovascular: Rhythm Regular Respiratory: Normal Breath Sounds, No Rales, No Rhonchi, No Wheezing Gastrointestinal/Abdominal: Normal Exam, Bowel Sounds, Soft, No Tenderness Back: CVA Tenderness (right ) Extremity: Normal ROM Neurological/Psych: Oriented x3 ED Course And Treatment O2 Sat by Pulse Oximetry: 100 (RA) Pulse Ox Interpretation: Normal - Physician Consult Information Physician Contacted: Ankush Gunderson Outcome Of Conversation: Discussed patient with her urologist, patient will be same day surgery admission for right side ureteral stent removal. Blood work already done yesterday. Disposition - Disposition Disposition: HOSPITALIZED Disposition Time: 10:34 Condition: STABLE - Clinical Impression Clinical Impression: Encounter for removal of ureteral stent, Kidney stone on right side Decision To Admit - Pt Status Changed To: Hospital Disposition Of: SDS- Endo,OR,Cath,IR - . Bed Request Type: Same Day Surgery Admitting Physician: Ankush Gunderson Patient Diagnosis: Kidney stone on right side, Encounter for removal of ureteral stent
[2018-01-20] MEDS ORDERED: Ciprofloxacin 400mg/200ml D5W 400 MG/200 ML BAG IVPB ONE (14:06)
[2018-01-20] MEDS ORDERED: Lidocaine 2% Jelly (Uro-Jet) ONE (14:06)
[2018-01-20] MEDS ORDERED: Oxycodone/Acetaminophen 5/325 mg Tab PO PRN (15:33)
[2018-01-20] MEDS ORDERED: Midazolam 2 MG/2 ML VIAL ONE (15:57)
[2018-01-20] MEDS ORDERED: Propofol 10 mg/ml Inj (20 ML) ONE (15:57)
[2018-01-20] MEDS ORDERED: Iohexol 240 (50 ml) ONE (16:26)
[2018-01-20] MEDS ORDERED: HYDROmorphone 0.5 mg/0.5 ml ISec IVP PRN (16:40)
[2018-01-20 18:26] VITALS: BP 114/76; PULSE 96; RESP 20; TEMP 97.8; O2SAT 100
--- NOTE | 2018-01-20 18:43 | RAD ---
HISTORY: RT URETERAL STONE COMPARISON: No prior. FINDINGS: BOWEL: Normal. No obstruction. No free air. BONES: Normal. OTHER FINDINGS: Double-J stent catheter identified on the right side in satisfactory position. Contrast in the distended right renal pelvis and collecting system. Distally this stent is in the urinary bladder. IMPRESSION: A double-J stent catheter appears in satisfactory position on the right-side. Proximal aspect coiled in the collecting system and the distal end coiled in the bladder.
--- NOTE | 2018-01-20 18:44 | RAD ---
PROCEDURE: Intraoperative Fluoroscopy. HISTORY: RT URETERAL STONE FINDINGS: Fluoroscopic assistance was provided for cystography and stent placement. Please refer to the operative report from SHARYN Foy, , MD GUY. Total fluoroscopic time (continuous mode) utilized during the procedure (seconds) 7.6
--- NOTE | 2018-01-23 08:04 | OP ---
PROCEDURE DATE: 01/20/2018 UROLOGY OPERATIVE REPORT SURGEON: Charly Gunderson MD PREOPERATIVE DIAGNOSES: Urolithiasis, hematuria, retained stent, hydronephrosis, intermittent flank pain. POSTOPERATIVE DIAGNOSES: Urolithiasis, hematuria, retained stent, hydronephrosis, intermittent flank pain, encrusted stent externally and an obstructed stent internally, see the body of report. PROCEDURE: Cystoscopy, difficult to removal of a right double J-stent, a right ureteroscopy, and insertion of a right double J stent. ESTIMATED BLOOD LOSS: Less than 10 mL. COMPLICATIONS: There were no complications. SPECIMEN: None. FINDINGS: Extremely encrusted stent with tremendous amount of stone on the external surface; but we were able to remove it. Internally, we were not able to put a wire through the stent. Other urology operative findings are as follows. 1. The mucosa of the ureteral wall is extremely edematous. There were no obstructing stones found between the kidney and the bladder within the ureter. 2. The bladder mucosa is relatively normal. Around the ureteral orifices, there is tremendous amount of edema and abnormality, multiple gross pictures were taken. See the body of the report. Pictures were taken of the encrusted stent. We are unable to even see the stent or to able to crush off the stones. All we can see are the stones on the stent, and the bladder mucosa itself is extremely edematous making it somewhat difficult to even place a wire and ureteroscope, but we were able to do that. 3. There is a stent stone what appears to be a stone in the upper pole of the kidney. Further findings, on physical exam are, there is no evidence of cystocele; there are no pelvic masses; there are no rectal masses. See the body of the report. INDICATIONS OF PROCEDURE: Ms. Paul is a very pleasant 40-year-old lady, pleasant but extremely noncompliant for her care. After multiple discussions, finally she is here today, and we bring her to the OR for the above listed procedure. I had explained to the patient at great length, in many, many office visits that after such a long period of time even when I first met her back, may be close to 6 months or 8 months ago at this point, that once the stent is in for too long, sometimes it will be very difficult to take but we will do our best to remove the stent. I explained that sometimes it takes 2 to 3 treatments depending on urology operative findings, but we explained that we need to remove the stent that is there. We also discussed the possibility to shockwave lithotripsy for various reasons, mostly insurance related but also for noncompliant reasons, I will bring her here at the hospital where we are going just treat her with ureteroscope or laser, not with shockwave lithotripsy. See the history and physical, and the addendum to the original note, that is separate note regarding her care. She is here now for the above listed procedure. Overall, the procedure today was extremely well. However it is considered, the patient is relatively fortunate; we were able to remove the stent, I did not get a double-J stent, I have to put two stents in, there did not appear to be any ureteral stones at this point. There is an extremely erythematous, edematous ureter, that should resolve with a new indwelling working double-J stent. The other significant findings today that the stent that is there is besides encrusted on the outside and inside even after various multiple cut portions. The stent is completely encrusted to the point that I cannot put a wire in at any point along the way. DESCRIPTION OF PROCEDURE: After obtaining informed consent, the patient was placed on the table. Routine monitor was placed. Time-out was called to confirm the patient and positioning. Antibiotic prophylaxis were used. We used ciprofloxacin as the patient is ALLERGIC TO PENICILLIN. We confirmed the patient's positioning. Manager Background films were performed indicating the stent in location. It looks to be in proper location between the right kidney and the bladder. Also the findings of the x-rays, films were submitted to the radiologist but it looks like there is a stone in the upper pole of the kidney. So, after obtaining informed consent and explaining to the patient in great detail our plans, a time-out called and antibiotic prophylaxis were used. We introduced the cystoscope via urethra. Normal bladder. General mucosa is noted. Pictures were taken and saved. See the pictures in the chart. The procedure was done with the camera and also with the fluoroscopic imaging. We identified the old stent. It is completely encrusted. The whole distal end that is in the bladder is filled with stones and the ureteral orifice is extremely edematous. At this point, we removed all the stones on the stent gently, carefully, and gently tried to remove it through the meatus. It actually slides down relatively easy. Once through the meatus, I tried gently to insert the wire but the ureteral stent is completely obliterated. So then we often do is to cut the more proximal portion of the double-J stent and see if this will allow passage of a wire which in this case did not and then we went a little further. We kept under fluoroscopic imaging, the stent is pulling down surprisingly but fairly easily. For no matter where I am in the ureteral stent, I cannot put a wire through it. So at this point, we put a safety wire adjacent to the double-J stent. We did so in the following fashion. We reintroduced the cystoscope and gently carefully we had the old stent as a guide to where the orifice is. Even with this in mind, it is extremely edematous to see the pictures that are included in the chart. We are eventually able to gently carefully manipulate the wire through the double J stent. We removed the entire double-J stent, and we had a safety wire up to the kidney. At this point, therefore with that, we have a wire up to the kidney. We now took the rigid ureteroscope. At this time, we did rigid ureteroscope and go adjacent through the wire. Again going through the orifice is somewhat difficult, so we actually used a second wire which is not usually needed, but in this case I have the safety wire up. I used the second wire as a guide to put it through the ureteral orifice and then we got up adjacent to this. Once within the ureter, we identified the following. There are just multiple areas of erythema and edema; but there are no pinpoint stones. There are no specific stones that are identified throughout the entire course. We injected contrast also and injected for retrograde pyelogram. Films were submitted to Radiologists, all the way up to renal pelvis, a little beyond to it. I do not see any other abnormalities. As mentioned previously, we do see a small stone up in the kidney but the goal today was to just clear the ureter and we placed a stent. So at this point under direct vision again, we removed the ureteroscope. I had the safety wire in place. I had the two wires in place. We kept the second wire as our guide. Held it, so we know exactly which one we are dealing with. We put a double-J stent over this. We confirmed its positioning. We then removed the safety wire. We have a double-J stent and we confirmed our positioning under fluoroscopic imaging. We emptied the bladder. Overall, the patient tolerated the procedure well without complications. ADDENDUM: I gave all the manipulation. We also added extra antibiotics. We gave a dose of gentamicin 80 mg. Further plans will follow. But overall, these results today are terrific. I explained this to the patient in the postoperative period. See the separately listed addendum. We were able to remove the entire stent, and at this point, we will just keep the double-J stent that is there in place. In couple of days, the edema will go away, and then we will plan to remove the double-J stent; but this does require her to come back. Either we can remove it in the office as an office procedure or we can remove it in the hospital. Further plans will follow depending on the patient's clinical course. Charly Gunderson MD
--- NOTE | 2018-01-23 08:24 | HP ---
UROLOGY EMERGENCY ADMISSION REASON FOR ADMISSION: For treatment of a kidney stone. HISTORY OF PRESENT ILLNESS: Ms. Adele Paul is a very pleasant, extremely noncompliant 40-year-old lady. I met her quite sometime ago. Please see also previously notes from yesterday. The patient was admitted to the hospital and she left the hospital last night. She is a patient who initially presented to [facility], and she had a cysto and a stent insertion from Dr. Jason Laboy. This is almost about a year ago. The patient then claimed that for various reasons, she was not able to continue to follow up with Dr. Laboy. She had come to me requesting further treatment advice. I explained to the patient that I have seen many previously dictated short notes for the patient. Also the patient has had multiple visits to the ER as well as spoken to the patient. I explained the treatment next step is either shock wave lithotripsy from outside the body or cystourethroscopy laser lithotripsy depending on our urology findings. For various reasons, the patient was not able to show up for treatment. Several times, we have arranged to bring the patient to the hospital, and she did not show up for appointments. Today, she came directly to the emergency room, and while she is here now, we are going to treat her emergently. See the plans listed below. What I had outlined to the patient is that the plan will be for cystourethroscopy laser lithotripsy. I explained to the patient that at this point, it is difficult to know exactly what our urology operative findings would be, sometimes that after a stent have been inserted, it is encrusted. She may exactly require several treatments depending on what we find, sometimes we find that the patient even would require a second stent. I just started draining the kidney. Depending on the levels of encrustation and sometimes, in fact at this point, there are no stones further. Infact, the initial stone might have passed. This will all depend on our urology findings. After many discussion with the patient at great length, the plans for today is as long she here in the hospital before she runs away, we are going to bring her to the hospital and we are going to bring her to the operating room. She presented to the ER with the plan for surgical intervention, and we are going to plan that. See below. PAST MEDICAL AND SURGICAL HISTORY: As listed through the chart and there are many ER notes. No history of an ID or CVA. REVIEW OF SYSTEMS: Listed above, but she reports that there are days where she has tremendous discomfort and pain. In the other days, she has no discomfort. Her family structure, she has come to the office with a mother, unremarkable family structure. Review of systems as listed above. No weight loss, chest pain, shortness of breath, constitutional complaints, and night sweats. Again, there is intermittent notes where the patient presented to the emergency room after various reasons. Further notes, I do not know if the patient has any psychiatric history. She appears to be mentally alert, oriented, and intact, and able to answer questions appropriately and has a reasonable conversation. MEDICATIONS: See the chart. ALLERGIES: SHE IS ALLERGIC TO PENICILLIN. PHYSICAL EXAMINATION: GENERAL: She is a well-nourished female, in apparent distress. She is currently resting comfortably in the gurney. VITAL SIGNS: Within normal limits. The remainder of the physical exam is actually in normal limits. LUNGS: Clear. HEART: Normal S1 and S2. ABDOMEN: Relatively soft. Nontender. No flank masses appreciated. No gross abdominal distention. PELVIC: Deferred, ___ I will mention now, there is no palpable or rectal masses detected. There is no cystocele detected. LABORATORY DATA: See the chart. Actually, the labs are from yesterday from . No new labs are obtained at this point. DIAGNOSES: 1. Urolithiasis. 2. Retained stent. 3. Hematuria. 4. Intermittent flank pain. In summary, this is a very pleasant 40-year-old lady, pleasant but extremely noncompliant for her care. We have discussed at great length many various options for the treatment for the patient. Many times when she is here, she disappears. Does not stay for her care. She comes on her schedule, and now she presented both on 01/19/2018 and then left, and she is presenting now 01/20/2018 so while she is here, we are going to bring to the OR immediately. See the operative note for final plans. See the addendum at the end of this note. But the plan is as follows, we are going to provide antibiotic prophylaxis. We are going to bring her to the OR. At the minute, we are going to bring her to the OR. We are going to do a cysto. We are going to try to remove the stent if we are able to, depending on level of encrustation. We are going to plan, and we will do as much as we can. I explained this to the patient in great details. I have drawn pictures of various cysto, removed the stent, ureteroscopy laser lithotripsy. I explained also we may need to put a second stent in. Sometimes, I did have to place 2 stents in people depending on what will be fine, depending on encrustation, sometimes we are not even able to get the stent down. We may have to laser the stent depending on the levels. After explaining all these things to the patient, the plan is as follows, we are going to bring her to OR. 1. Provide antibiotic prophylaxis. 2. Cystoscopy. 3. Try to remove the double J stent. 4. Treat the stones as best as possible. I explained this at length to the patient. I explained that most likely she will require more than one procedure, and I am going to ask her to try to continue to come and not disappear. Further plans will follow. Charly Gunderson MD
== END 2018-01-20 18:20 | disposition home or self-care (01) ==
LOC: C.ER 09:06 → C.SDS 10:34
PROVIDERS: ATTEND Urology
DX: N13.2 Hydronephrosis with renal and ureteral calculous obstruction (principal); R31.9 Hematuria, unspecified
CPT/HCPCS: 52332; 52351; 74018; 82948; 99285; C1725; C1758; C1769; J0744; J1580; Q9966

== ENCOUNTER 2018-03-26 10:04 | Day surgery (SDC) | payer OTHER ==
--- NOTE | 2018-03-26 10:38 | C.PDOC ---
History Of Present Illness 40 y/o female presents to the ER upon referral of Dr. Gunderson for ureteral stent removal. The stent was placed on 02/19/18. Denies having fever, chills, and back pain. Time Seen by Provider: 03/26/18 10:19 Chief Complaint (Nursing): Female Genitourinary History Per: Patient History/Exam Limitations: no limitations Past Medical History Reviewed: Historical Data, Nursing Documentation, Vital Signs Vital Signs: Last Vital Signs Temp 97 F L 03/26/18 16:30 Pulse 63 03/26/18 16:30 Resp 18 03/26/18 16:30 BP 118/72 03/26/18 16:30 Pulse Ox 100 03/26/18 16:30 - Medical History PMH: Kidney Stones Other Surgeries: Hx of surgeries Family History: States: No Known Family Hx - Social History Hx Tobacco Use: No Hx Alcohol Use: No Hx Substance Use: No - Immunization History Hx Tetanus Toxoid Vaccination: No Hx Influenza Vaccination: No Hx Pneumococcal Vaccination: No Review Of Systems Constitutional: Negative for: Fever, Chills Musculoskeletal: Negative for: Back Pain Physical Exam - Physical Exam Appears: Non-toxic, No Acute Distress Skin: Normal Color, Warm, Dry Head: Atraumatic, Normacephalic Eye(s): bilateral: Normal Inspection Cardiovascular: Rhythm Regular Respiratory: Normal Breath Sounds, No Rales, No Rhonchi, No Wheezing Gastrointestinal/Abdominal: Soft, No Tenderness, No Guarding, No Rebound Back: CVA Tenderness (minimal right sided CVA tenderness) Extremity: Normal ROM, No Calf Tenderness, No Swelling Neurological/Psych: Oriented x3, Normal Speech Medical Decision Making Medical Decision Making: Plan: --POC Test RN Chris spoke with Dr Gunderson, requested poc only prior to OR. pt has added that she has intermittent right lower quadrant tenderness for last few days. On exam, pt with mild tenderness to deep palpation, no rebound or guarding. pt advised this is likely due to stone, to discuss with Dr Gunderson. and that imaging not required at this time. Disposition Discussed With : Ankush Gunderson Doctor Will See Patient In The: Hospital - Disposition Disposition: HOSPITALIZED Disposition Time: 10:48 Condition: GOOD - Clinical Impression Clinical Impression: Kidney stone on right side, Ureteral stent retained - PA / [employer] / Resident Statement MD/DO has reviewed & agrees with the documentation as recorded. - Scribe Statement The provider has reviewed the documentation as recorded by the Scribe Jarrett Smith Provider Attestation All medical record entries made by the Timiibe were at my direction and personally dictated by me. I have reviewed the chart and agree that the record accurately reflects my personal performance of the history, physical exam, medical decision making, and the department course for this patient. I have also personally directed, reviewed, and agree with the discharge instructions and disposition.
[2018-03-26 12:25] LABS: URINE BACTERIA RARE (<OCC); URINE BILIRUBIN NEGATIVE (NEGATIVE); URINE BLOOD 1+ (NEGATIVE); URINE CLARITY Hazy (Clear); URINE COLOR Yellow (YELLOW); URINE GLUCOSE (UA) NORMAL (Normal); URINE LEUKOCYTE ESTERASE 3+ Leu/uL (Negative); URINE PROTEIN NEGATIVE (NEGATIVE); URINE UROBILINOGEN NORMAL mg/dL (0.2-1.0)
[2018-03-26] MEDS ORDERED: Iohexol 240 (50 ml) ONE (15:00)
[2018-03-26] MEDS ORDERED: Ciprofloxacin 400mg/200ml D5W 400 MG/200 ML BAG IVPB ONE (15:00)
[2018-03-26] MEDS ORDERED: Propofol 10 mg/ml Inj (20 ML) ONE (15:07)
[2018-03-26] MEDS ORDERED: Midazolam 2 MG/2 ML VIAL ONE (15:07)
[2018-03-26] MEDS ORDERED: Oxycodone/Acetaminophen 5/325 mg Tab PO PRN (15:26)
[2018-03-26] MEDS ORDERED: HYDROmorphone 0.5 mg/0.5 ml ISec IVP PRN (15:34)
[2018-03-26] MEDS ORDERED: Lactated Ringer's 1,000 ML IV SCH (15:45)
--- NOTE | 2018-03-26 16:22 | RAD ---
Date of service: 03/26/2018 HISTORY: HEMATURIA/STONE COMPARISON: 02/16/2018 FINDINGS: BOWEL: Normal. No obstruction. No free air. BONES: Normal. OTHER FINDINGS: Status post stent removal on the right. Tiny less than 3 mm calculi overlie the lower pole of the right kidney. IMPRESSION: No acute findings. Status post right stent removal.
[2018-03-26 17:17] VITALS: BP 118/72; PULSE 63; RESP 18; TEMP 97; O2SAT 100
--- NOTE | 2018-04-22 21:30 | OP ---
PROCEDURE DATE: 03/26/2018 PREOPERATIVE DIAGNOSES: Urolithiasis, hematuria, hydronephrosis, stone disease. POSTOPERATIVE DIAGNOSES: Urolithiasis, hematuria, hydronephrosis, stone disease. PROCEDURE: Cystoscopy, removal of double J stent on the right side. COMPLICATIONS: There were no complications. SURGEON: Charly Gunderson MD. BLOOD LOSS: Less than 10 mL. By x-ray criteria, the patient is stone free. INDICATIONS: See history and physical for further details. A very pleasant but extremely noncompliant lady. She initially presented to another doctor. She had a stent inserted with many dictated notes prior to this. with the patient. She is influenced by her family. Also reports . She is a very pleasant lady but has had a stent in for quite sometime. Initially we met the patient after months after she had her stent. Initially, I recommended immediate treatment. It took a while for her to be able to show up her appointment for various reason, socially, etc. Subsequently, when we only did finally treat her, see the previously dictated notes here. Stent was completely encrusted. We eventually inserted a new stent. We are able to do that, see the separately dictated note, and then we underwent treatment, and most recently, she had shockwave lithotripsy, and she was not able to go to the stone center which is why I do more of my stone procedures but the patient has the [employer] insurance. We reported to the [facility]. We did a shock wave lithotripsy. She is now here today for removal of the double J stent. By x-ray criteria, there were no stones. I did discuss the possibility to repeat CT scan. The patient does have some concerns about too much radiation exposure. Thus we discussed all the options. She has been treated. I explained to the patient that we are going to remove the stent today. And if she should have further ureteral stone after . If there are left over remnant renal stones, for the future, I will offer treatments, but more likely I am going to suggest to her that she seek out second opinion. But it has been very difficult to take care of this patient particularly. So I am going to complete the treatment, despite the fact that I did not even initiate the treatment. After discussing options, we have been trying to be empathetic to her difficulty. We are here now for the above listed procedure. DESCRIPTION OF PROCEDURE: After obtaining informed consent, the patient was placed on a table. Routine monitors placed and time out was called. Cystoscope was introduced via urethra. The cystoscope introduced via the urethra. The old stent was identified. We removed it without difficulty with no calcifications on it. Bladder was emptied, cystoscope removed. The patient tolerated the procedure well without complication. ADDENDUM: This is repeat of a dictation and I have subsequently spoken to the patient several times, and she is doing well clinically. Charly Gunderson MD
--- NOTE | 2018-04-22 22:34 | HP ---
UROLOGY ADMISSION HISTORY AND PHYSICAL This is a repeat of a dictation. REASON FOR ADMISSION: Removal of stent. HISTORY OF PRESENT ILLNESS: Ms. Paul is a very pleasant but extremely noncompliant lady, see my previously dictated note. She is influenced by her father. She has many questions. She initially presented to another urologist, who put a stent in for a severe stone disease. She then did not return for followup and made the stone treatment much more difficult. When I first met her, I offered immediate treatment and deferred to Medicine at that time. See those dictated in previous notes. Now she is here today for stent removal. At this point, she seems to be stone free. Therefore, and receives [employer] insurance. I discussed with her my preference to [facility] her [facility], but she has [employer] for me in terms of scheduling and various options. The patient multiple times was scheduled and did not show for her appointments. REVIEW OF SYSTEMS: Listed above. Noncontributory. No weight loss, chest pain, or shortness of breath. SOCIAL HISTORY: Again, as mentioned, she comes to the office sometimes with her mother, sometimes by herself, and sometimes with her father. She does not get a prior appointment. She just walks into the office and demands actually to be seen, and so far every time we have seen her. PAST MEDICAL/SURGICAL HISTORY: All listed in the chart and are essentially normal. MEDICATIONS: None. ALLERGIES: NONE. PHYSICAL EXAMINATION: GENERAL: A well-developed, well-nourished female in no apparent distress. VITAL SIGNS: Within normal limits and included in the chart. LUNGS: Clear. HEART: Normal S1 and S2. ABDOMEN: Overall soft. PELVIC/RECTAL: As I mentioned, no pelvic or rectal masses. The diagnosis is urolithiasis, hematuria, hydronephrosis, now this is all resolved. Per x-ray criteria, there is no left over stones. Today, we decided to remove the stent. We discussed the options with the patient. Risks, benefits, and alternatives were discussed with the patient, that if I remove the stone and subsequently she has residual stone fragments passing in her ureter, at this point, I will still continue to treat her for the next couple of days or week. I did not specify a specific time period as such relating to that, but I did discuss with her that in the future if she should have stone disease, I am going to recommend that she presents to the emergency room through another doctor. She is an extremely difficult patient to deal with and a very difficult family, they canceled multiple times. See many of my chart notes and my text notes to the patient, it has been extremely challenging to take care the patient, and it is truly, I explained to her out of just compassion that I am going to finish to complete the treatment. She has not been uninsured. She has made claims to have made payments. I am not even aware of them, I told that is nothing to do with the payment. I have emphasized this again and again that it is unrelated. The patient is impossible to deal with from a doctor's standpoint, does not show for half the appointments. I explained they have to get a schedule. She just walks into the office. I have explained to the patient in great detail that whatever reason, there are other urologists that are out there, for whatever reason, she is not able to follow office and me personally, I am going to finish this treatment and if there is some residual stone, then I am going to see the patient. I want to mention to highlight that this is a repeat of a dictation later after her initial treatment I just did on , 03/26/2018. I remember it very well, we subsequently had multiple conversations confirming that the stone has gone. She then felt like she had pain. She then had pain, so she went to the emergency room. She was evaluated, I spoke to the ER at that time. There was no evidence of stone disease. I spoke to the patient several times since then either by testing or by speaking directly. Then she is currently well. At this point, as of this dictation, I am going to be discharging her from my care. Eventually, she should have followup for the future if she has stone disease. I am going to suggest strongly that she find another urologist because it was so difficult, truly difficult for me at least to take care of her. So, the diagnosis is urolithiasis, hematuria, retained stent placed by another urologist. Now, she is stone free by x-ray criteria. If there is any ureteral stones left over, we will take care of that. PLAN: For today is as follows: 1. Antibiotic prophylaxis. 2. Cystoscope. 3. Removal of the stent. Charly Gunderson MD
== END 2018-03-26 17:19 | disposition home or self-care (01) ==
LOC: C.ER 10:04 → C.SDS 11:15
PROVIDERS: ATTEND Urology
DX: N13.2 Hydronephrosis with renal and ureteral calculous obstruction (principal)
CPT/HCPCS: 52310; 74018; 81001; 99285; J0744; J1580

== ENCOUNTER 2018-03-27 17:45 | Emergency (ER) | payer OTHER ==
--- NOTE | 2018-03-27 18:18 | C.PDOC ---
History Of Present Illness 40 y/o female, with history of hormonal imbalance, presents to ED c/o multiple episodes of vomiting, generalized weakness, and dizziness since yesterday after her stent removal procedure. Pt states she called Dr. Jian Gunderson who instructed her to report to ER for further evaluation. Pt reports 4 episode of vomiting yesterday and 2 episodes of vomiting since this morning, no blood in vomit. Denies dysuria, abdominal pain, back pain, fever, one sided weakness, slurred speech, headache, or any other associated symptoms at this time. Time Seen by Provider: 03/27/18 18:18 Chief Complaint (Nursing): Abdominal Pain History Per: Patient History/Exam Limitations: no limitations Past Medical History Reviewed: Historical Data, Nursing Documentation, Vital Signs Vital Signs: Last Vital Signs Temp 98.0 F 03/27/18 21:13 Pulse 51 L 03/27/18 21:13 Resp 16 03/27/18 21:13 BP 122/81 03/27/18 21:13 Pulse Ox 100 03/27/18 21:13 - Medical History PMH: Kidney Stones Family History: States: Unknown Family Hx - Social History Hx Tobacco Use: No Hx Alcohol Use: No Hx Substance Use: No - Immunization History Hx Tetanus Toxoid Vaccination: No Hx Influenza Vaccination: No Hx Pneumococcal Vaccination: No Review Of Systems Except As Marked, All Systems Reviewed And Found Negative. Constitutional: Positive for: Weakness. Negative for: Fever, Chills Cardiovascular: Negative for: Chest Pain Gastrointestinal: Positive for: Nausea, Vomiting. Negative for: Abdominal Pain , Diarrhea Genitourinary: Negative for: Dysuria, Frequency, Hematuria Neurological: Positive for: Dizziness. Negative for: Weakness, Numbness, Headache Physical Exam - Physical Exam Appears: Non-toxic, No Acute Distress Skin: Normal Color, Warm, Dry Head: Atraumatic, Normacephalic Eye(s): bilateral: Normal Inspection Oral Mucosa: Moist Neck: Normal ROM, Supple Chest: Symmetrical Cardiovascular: Rhythm Regular, No Murmur Respiratory: Normal Breath Sounds, No Rales, No Rhonchi, No Wheezing Gastrointestinal/Abdominal: Soft, No Tenderness, No Guarding, No Rebound Back: No CVA Tenderness Extremity: Normal ROM Neurological/Psych: Oriented x3, Normal Speech ED Course And Treatment - Laboratory Results Result Diagrams: 03/27/18 18:15 03/27/18 18:15 O2 Sat by Pulse Oximetry: 98 (RA) Pulse Ox Interpretation: Normal Medical Decision Making Medical Decision Making: Plan: Blood work UA Zofran IV fluids spoke to Dr. Macias Uro- w/u if neg can go home us unremarkable Labs and imaging unremarkable likely post op vomit, will have f/u Disposition - Disposition Disposition Time: 21:46 Condition: GOOD Forms: [facility] (Finnish) - Clinical Impression Clinical Impression: Vomiting, Nausea - Scribe Statement The provider has reviewed the documentation as recorded by the Scribe KP All medical record entries made by the Scribe were at my direction and personally dictated by me. I have reviewed the chart and agree that the record accurately reflects my personal performance of the history, physical exam, medical decision making, and the department course for this patient. I have also personally directed, reviewed, and agree with the discharge instructions and disposition.
[2018-03-27 18:29] LABS: URINE BILIRUBIN NEGATIVE (NEGATIVE); URINE BLOOD NEGATIVE (NEGATIVE); URINE CLARITY Clear (Clear); URINE COLOR Yellow (YELLOW); URINE GLUCOSE (UA) NORMAL (Normal); URINE LEUKOCYTE ESTERASE NEG Leu/uL (Negative); URINE PROTEIN NEGATIVE (NEGATIVE); URINE UROBILINOGEN NORMAL mg/dL (0.2-1.0)
[2018-03-27] MEDS ORDERED: Sodium Chloride 0.9% 1,000 ML IV SCH (18:30)
[2018-03-27 18:32] LABS: HCG,QUALITATIVE URINE NEGATIVE (NEGATIVE)
[2018-03-27 18:34] LABS: BASO # 0.1 K/uL (0.0-0.2); BASO % 1.3 % (0.0-2.0); EOS # 0.2 K/uL (0.0-0.7); EOS % 2.7 % (0.0-4.0); HEMOGLOBIN 12.4 g/dL (11.0-16.0); LYMPH # 2.4 K/uL (1.0-4.3); LYMPH % 33.1 % (20.0-40.0); MEAN CELL VOLUME 88.4 fL (81.0-99.0); MEAN CORPUSCULAR HEMOGLOBIN 30.2 pg (27.0-31.0); MEAN CORPUSCULAR HGB CONC 34.2 g/dL (33.0-37.0); MEAN PLATELET VOLUME 9.5 fL (7.2-11.7); MONO # 0.6 K/uL (0.0-0.8); MONO % 7.8 % (0.0-10.0); NEUT % 55.1 % (50.0-75.0); NRBC % 0.1 % (0.0-2.0); RBC 4.09 Mil/uL (3.80-5.20); RED CELL DISTRIBUTION WIDTH 14.1 % (11.5-14.5); WHITE BLOOD COUNT 7.2 K/uL (4.8-10.8)
[2018-03-27 18:36] LABS: ALB/GLOB RATIO 1.5 (1.0-2.1); ALBUMIN 4.2 g/dL (3.5-5.0); ALT/SGPT 15 U/L (9-52); AST/SGOT 13 U/L (14-36); BLOOD UREA NITROGEN 6 mg/dL (7-17); CALCIUM 8.5 mg/dl (8.6-10.4); GFR NON-AFRICAN AMERICAN > 60
[2018-03-27] MEDS ORDERED: Sodium Chloride 0.9% 250 ML IV ONE (18:38)
[2018-03-27 19:02] LABS: VENOUS BLOOD GAS BASE EXCESS -5.3 mmol/L (0.0-2.0); VENOUS BLOOD GAS PCO2 33 mmHg (40-60); VENOUS BLOOD GAS PO2 49 mm/Hg (30-55); VENOUS BLOOD PH 7.37 (7.32-7.43)
[2018-03-27 21:13] VITALS: BP 122/81; PULSE 51; RESP 16; TEMP 98
[2018-03-27 21:47] VITALS: O2SAT 98
--- NOTE | 2018-03-28 13:10 | US ---
Renal ultrasound History: Hydronephrosis. Comparison: CT scan dated 01/19/2018 Technique: Real-time sonography was performed through the kidneys. Findings: Right kidney: 11.8 x 4.5 x 5.1 centimeters. Mild hydronephrosis of the right kidney. 2 centimeter hypoechoic cyst in the upper pole of the right kidney. Left Kidney: 12.1 x 4.0 x 5.4 centimeters. Mild fullness of the left renal collecting system. No calculi identified in either kidney. Visualized urinary bladder is grossly preserved. Visualized aorta grossly preserved. Impression: Mild right renal hydronephrosis. Mild fullness of the left renal collecting system. Right renal cyst. These findings were preliminarily reported at 9:39 p.m. on 03/27/[address] Amando Petersen from [facility].
== END 2018-03-27 22:08 | disposition home or self-care (01) ==
LOC: C.ER 17:45
DX: R11.2 Nausea with vomiting, unspecified (principal)
CPT/HCPCS: 76770; 80053; 81001; 82803; 83690; 84703; 85025; 96374; 99284; J2405; J7030